=== PATIENT | male | born 1945 | race African-American/Black ===

== ENCOUNTER 2018-02-20 12:22 | Inpatient (IN) ==
[2018-02-20] MEDS ORDERED: Ipratropium/Albuterol Neb 3 ML IH ONE (12:32)
[2018-02-20 13:15] LABS: Basophils % 0.2 %; Eosinophils % 0.1 %; Hematocrit 44.6 % (37.5-50.1); Hemoglobin 14.9 g/dL (12.9-16.9); Immature Granulocytes % 0.3 % (0-4); Lymphocytes # 1.5 K/mcL (0.6-4.6); Lymphocytes % 13.5 %; Mean Corpuscular HGB Conc 33.4 g/dL (31.6-35.5); Mean Corpuscular Hemoglobin 29.2 pg (28.0-33.3); Mean Corpuscular Volume 87.5 fL (83.0-100.0); Mean Platelet Volume 10.8 fL (9.4-12.4); Monocytes # 0.7 K/mcL (0.0-1.3); Monocytes % 6.4 %; Platelet Count 239 K/mcL (140-400); Red Cell Distribution Width 14.4 % (11.5-14.5); Segmented Neutrophils % 79.5 %
[2018-02-20 13:40] LABS: Troponin I < 0.03 ng/mL (< 0.04)
[2018-02-20 13:45] LABS: BUN/Creatinine Ratio 36 (6-26); Blood Urea Nitrogen 98 mg/dL (8-23); Calcium 9.8 mg/dL (8.6-10.3); Carbon Dioxide 17 mEq/L (23-29); Chloride 107 mEq/L (98-107); Glucose 111 mg/dL (70-105); Osmolality,Calculated 317 (280-300); Potassium 4.1 mEq/L (3.5-5.1); Sodium 138 mEq/L (136-145); eGFR For African Americans 28 (> 60); eGFR For Non-African Americans 23 (> 60)
[2018-02-20] MEDS ORDERED: Azithromycin 500 MG in D5% in Water 250 ML IVPB ONE (14:16)
[2018-02-20] MEDS ORDERED: 0.9 % Sodium Chloride 1,000 ML IVC ONE (14:16)
[2018-02-20] MEDS ORDERED: methylPREDNISolone 125 MG/2 ML VIAL IVP ONE (14:16)
--- NOTE | 2018-02-20 15:17 | Emergency Department Note ---
Disposition Clinical Impression: COPD exacerbation Acute renal failure Qualifiers: Acute renal failure type: unspecified Qualified Code(s): N17.9 - Acute kidney failure, unspecified Disposition: Transfer Other Referrals: Braulio Reese MD [Primary Care Provider] - SOB HPI - General Chief Complaint: ED Shortness of Breath/Dyspnea Stated Complaint: Shortness of Breath Time Seen by Provider: 02/20/18 12:32 Source: EMS Limitations: no limitations Nursing Notes Reviewed: Yes Vital Signs Reviewed: Yes - History of Present Illness Patient presents today for evaluation of shortness of breath. Patient's shortness of breath started approximately 2 weeks ago and progressively worsened nature. Patient states increasing use of home albuterol. The patient does not wear home oxygen. History of both COPD as well as CHF. No significant weight gain. Patient has had improvement home with albuterol treatments. Patient has not had specific fevers. No recent admissions to the hospital. The patient has not been on recent steroids or antibiotics. Patient will get be given breathing treatments as well as further laboratory workup. Patient is not requiring 2 L of oxygen will likely be admitted to hospital for further treatment and evaluation - Related Data Home Medications Medication Instructions Recorded Confirmed Azelastine HCl [Astepro] 1 spray NS BID 05/21/15 10/14/17 Clopidogrel [Plavix] 75 mg PO QAM 05/21/15 10/14/17 Ferrous Sulfate 325 mg PO DAILY 05/21/15 10/14/17 Rosuvastatin [Crestor] 20 mg PO QAM 05/21/15 10/14/17 Ubidecarenone [Co Q-10] 60 mg PO QAM 07/23/15 10/14/17 Fluticasone Propionate Nasal 50 mcg NS BID 07/13/16 10/14/17 [Flonase] Montelukast [Singulair] 10 mg PO DAILY 07/13/16 10/14/17 Paroxetine HCl [Paroxetine] 40 mg PO DAILY 08/31/16 10/14/17 Tiotropium [place] [Spiriva] 1 puff IH DAILY 08/31/16 10/14/17 hydroCHLOROthiazide 12.5 mg PO DAILY 08/31/16 10/14/17 [Hydrochlorothiazide] Loratadine [Allergy Relief] 10 mg PO DAILY 05/02/17 10/14/17 Mirtazapine [Remeron] 15 mg PO HS 05/02/17 10/14/17 Pantoprazole Sodium [Protonix] 40 mg PO DAILY 05/02/17 10/14/17 Potassium Chloride [Klor-Con 10] 10 meq PO BID 05/02/17 10/14/17 Previous Rx's Medication Instructions Recorded Pantoprazole Sodium [Protonix] 40 mg PO BID #60 tablet. 05/05/17 Sucralfate [Carafate] 1 gm PO ACHS #120 tab 05/05/17 Loratadine [Allergy Relief] 10 mg PO DAILY #30 tablet 12/07/17 Allergies Allergy/AdvReac Type Severity Reaction Status Date / Time Amoxicillin AdvReac Itching Verified 12/07/17 14:35 codeine AdvReac Itching Verified 12/07/17 14:35 Review of Systems: CONSTITUTIONAL: Generalized weakness and fatigue associated chills but no fever HEENT: Eyes: No visual changes. Ears, Nose, Throat: No hearing loss, difficulty talking or unable to swallow. SKIN: No rash or itching. CARDIOVASCULAR: No chest pain, chest pressure or chest discomfort. No palpitations or edema. RESPIRATORY: Shortness of breath with white sputum production GASTROINTESTINAL: No anorexia, nausea, vomiting or diarrhea. No abdominal pain or blood. GENITOURINARY: No burning on urination or hematuria. NEUROLOGICAL: No headache, dizziness, syncope, paralysis, ataxia, numbness or tingling in the extremities. No change in bowel or bladder control. MUSCULOSKELETAL: No muscle pain, back pain, joint pain or stiffness. Past Medical History - Past Medical History Medical history: Reports: asthma, CHF, COPD Surgical history: Reports: angioplasty/stent, other Psychiatric history: Reports: no psych history - Social History Smoking Status: Never smoker Smokeless Tobacco Status: No Alcohol use: Reports: none Drug use: Reports: none Physical Exam General: Mild distress secondary to shortness of breath Head: Normocephalic Atraumatic Eyes: PERRL, EOMI ENT: Airway patent, no stridor Neck: supple, no meningismus Chest: Decreased breath sounds bilaterally Cardiac: Regular rate and rhythm, no murmurs, rubs or gallops Abdomen: soft, nontender, nondistended; no guarding, rebound, or tenderness to percussion Musculoskeletal: Calves symmetric, nontender, no palpable cord Skin: No rash, normal skin tone Neuro: Alert and Oriented to person, place, and time; No focal deficit, - General Limitations: no limitations General appearance: alert, in no apparent distress Course - Reevaluation(s) Reevaluation #1: Patient reevaluated. Significant improvement after do not enhance by EMS as well as to do nebs here. Steroids and antibiotics given. No sign of CHF. Patient with acute kidney injury. 1 L of fluids has been ordered. Significantly elevated BUN. Concern for dehydration. - Consultations Consultation #1: Discussed with hospitalist. Patient accepted for admission. Vital Signs Temperature 98.2 F 02/20/18 12:24 Pulse Rate 71 02/20/18 12:24 Respiratory Rate 18 02/20/18 12:24 Blood Pressure 103/68 02/20/18 12:24 O2 Sat by Pulse Oximetry 97 02/20/18 12:24 Temperature 98.2 F 02/20/18 12:24 Pulse Rate 71 02/20/18 12:24 Respiratory Rate 20 02/20/18 12:43 Blood Pressure 103/68 02/20/18 12:24 O2 Sat by Pulse Oximetry 99 02/20/18 12:43 Oxygen Delivery Oxygen Delivery Room Air Shortness of Breath/Dyspnea - Medical Records Medical records reviewed: Yes I reviewed the patient's medical records. - Lab Data Lab results reviewed: Yes I reviewed the patient's lab results. Result diagrams: 02/20/18 13:01 02/20/18 13:01 Lab Results 02/20/18 02/20/18 02/20/18 Range/Units 13:01 13:01 13:01 WBC 11.3 H (4.3-11.1) K/mcL RBC 5.10 (4.19-5.50) M/mcL Hgb 14.9 (12.9-16.9) g/dL Hct 44.6 (37.5-50.1) % MCV 87.5 (83.0-100.0) fL MCH 29.2 (28.0-33.3) pg MCHC 33.4 (31.6-35.5) g/dL RDW 14.4 (11.5-14.5) % Plt Count 239 (140-400) K/mcL MPV 10.8 (9.4-12.4) fL Immature Gran % 0.3 (0-4) % Seg Neutrophils % 79.5 % Lymphocytes % 13.5 % Monocytes % 6.4 % Eosinophils % 0.1 % Basophils % 0.2 % Neutrophils # 9.0 H (1.6-8.9) K/mcL Lymphocytes # 1.5 (0.6-4.6) K/mcL Monocytes # 0.7 (0.0-1.3) K/mcL Eosinophils # 0.0 (0.0-0.6) K/mcL Basophils # 0.0 (0.0-0.2) K/mcL Sodium 138 (136-145) mEq/L Potassium 4.1 (3.5-5.1) mEq/L Chloride 107 (98-107) mEq/L Carbon Dioxide 17 L (23-29) mEq/L BUN 98 H (8-23) mg/dL Creatinine 2.70 H (0.70-1.30) mg/dL Est GFR ( Amer) 28 L (> 60) Est GFR (Non-Af Amer) 23 L (> 60) BUN/Creatinine Ratio 36 H (6-26) Glucose 111 H (70-105) mg/dL Calculated Osmolality 317 H (280-300) Lactic Acid 1.0 (0.5-2.2) mmol/L Calcium 9.8 (8.6-10.3) mg/dL Troponin I < 0.03 (< 0.04) ng/mL B-Natriuretic Peptide (Less than 100) pg/mL 02/20/18 Range/Units 13:01 WBC (4.3-11.1) K/mcL RBC (4.19-5.50) M/mcL Hgb (12.9-16.9) g/dL Hct (37.5-50.1) % MCV (83.0-100.0) fL MCH (28.0-33.3) pg MCHC (31.6-35.5) g/dL RDW (11.5-14.5) % Plt Count (140-400) K/mcL MPV (9.4-12.4) fL Immature Gran % (0-4) % Seg Neutrophils % % Lymphocytes % % Monocytes % % Eosinophils % % Basophils % % Neutrophils # (1.6-8.9) K/mcL Lymphocytes # (0.6-4.6) K/mcL Monocytes # (0.0-1.3) K/mcL Eosinophils # (0.0-0.6) K/mcL Basophils # (0.0-0.2) K/mcL Sodium (136-145) mEq/L Potassium (3.5-5.1) mEq/L Chloride (98-107) mEq/L Carbon Dioxide (23-29) mEq/L BUN (8-23) mg/dL Creatinine (0.70-1.30) mg/dL Est GFR ( Amer) (> 60) Est GFR (Non-Af Amer) (> 60) BUN/Creatinine Ratio (6-26) Glucose (70-105) mg/dL Calculated Osmolality (280-300) Lactic Acid (0.5-2.2) mmol/L Calcium (8.6-10.3) mg/dL Troponin I (< 0.04) ng/mL B-Natriuretic Peptide 9 (Less than 100) pg/mL - Radiology Data Radiology results reviewed: Yes I reviewed the patient's radiology results. - EKG Data EKG attestation: Yes I reviewed and interpreted this EKG. EKG results narrative: EKG shows sinus rhythm with ventricular rate of 66. NE interval 166. QRS 139. QTC 444. Mild depression in the lateral leads which is all consistent with previous EKG of 05/02/2017.
--- NOTE | 2018-02-20 15:56 | Internal Med History&Physical ---
Date of Encounter: 02/20/18 Time of Encounter: 15:30 Internal Medicine - H&P: HPI Chief complaint: Shortness of breath Admitted From: Emergency Dept Plans for Post Hospital Care: Home History of present illness: Mr. Hernandez is a 72 year old male patient with a history of CHF, COPD, hypertension presented to the ER with complaints of shortness of breath. He reports that his symptoms have been going on for 2 weeks. Progressively getting worse. He denies any chest pain at this time. Does have some cough. No recent hospitalizations. He does not wear home oxygen at home. No palpitations. No lightheadedness or dizziness. Does report some orthopnea. Occasional pedal edema. He did receive albuterol bronchodilator nebs in the ER with improvement in his symptoms. He does have a history of GI bleed in the past. Does report some abdominal pain in the epigastric region. Denies any hematemesis or blood in his stools. Past Med Surg Social Fam HX - Past Medical History Attestation: Yes The following information was validated with the patient. Source: patient Medical history: asthma, CHF, COPD Additional medical history: anemia Psychiatric history: no psych history - Past Surgical History Surgical History: angioplasty/stent, other Additional surgical history: cardiac stent - Social History Smoking Status: Never smoker Smokeless Tobacco Status: No Alcohol use: none Drug use: none - Family History Mother Living Status: Internal Medicine - H&P: Meds Azelastine HCl [Astepro] 1 spray NS BID 05/21/15 [History] Fluticasone Propionate Nasal [Flonase] 50 mcg NS BID 07/13/16 [History] Montelukast [Singulair] 10 mg PO DAILY 07/13/16 [History] hydroCHLOROthiazide [Hydrochlorothiazide] 12.5 mg PO DAILY 08/31/16 [History] Mirtazapine [Remeron] 15 mg PO HS 05/02/17 [History] Potassium Chloride [Klor-Con 10] 10 meq PO BID 05/02/17 [History] Pantoprazole Sodium [Protonix] 40 mg PO BID #60 tablet. 05/05/17 [Rx] Sucralfate [Carafate] 1 gm PO ACHS #120 tab 05/05/17 [Rx] Loratadine [Allergy Relief] 10 mg PO DAILY #30 tablet 12/07/17 [Rx] Clopidogrel [Plavix] 75 mg PO DAILY 02/20/18 [History] Ferrous Sulfate [Ferrous Sulfate] 325 mg PO DAILY 02/20/18 [History] Metoprolol [Lopressor] 25 mg PO BID 02/20/18 [History] PARoxetine HCl [Paroxetine HCl] 40 mg PO DAILY 02/20/18 [History] Rosuvastatin Calcium [Rosuvastatin Calcium] 20 mg PO QAM 02/20/18 [History] Tiotropium [Spiriva] 1 puff IH DAILY 02/20/18 [History] Ubidecarenone [Co Q-10] 60 mg PO QAM 02/20/18 [History] 3 Allergy/AdvReac Type Severity Reaction Status Date / Time Amoxicillin AdvReac Itching Verified 12/07/17 14:35 codeine AdvReac Itching Verified 12/07/17 14:35 All Systems PM: A 10-system review of systems was performed and is negative for pertinent findings except as documented above in the HPI. - Constitutional Constitutional: no chills, no fever(s), no night sweats - EENT Eyes: no change in vision, no discharge, no pain, no photophobia Ears: no ear discharge, no ear pain, no tinnitus Nose, mouth and throat: no dysphagia, no nasal discharge, no neck pain, no sore throat - Cardiovascular Cardiovascular ROS IM: no chest pain, no diaphoresis, no dyspnea, no lightheadedness, no palpitations, no syncope - Respiratory Respiratory: cough, dyspnea, wheezing - Gastrointestinal Gastrointestinal: no abdominal pain, no diarrhea, no hematemesis, no hematochezia, no melena, no nausea, no vomiting - Musculoskeletal Musculoskeletal ROS IM: no numbness, no tingling - Integumentary Integumentary IM: no rash, no unusual bruising - Neurological Neurological ROS: no confusion, no convulsions, no focal weakness, no numbness, no tingling, no tremor(s) - Constitutional Vitals: Temp Pulse Resp BP Pulse Ox 98.2 F 71 20 103/68 99 02/20/18 12:24 02/20/18 12:24 02/20/18 12:43 02/20/18 12:24 02/20/18 12:43 General appearance: Present: cooperative, mild distress, A&O X 3, pleasant, answers questions appropriately - Neck Neck exam general surgery: Present: supple, trachea midline. Absent: lymphadenopathy - Respiratory Respiratory exam: Present: prolonged expiratory phase. Absent: accessory muscle use, rales, rhonchi, wheezes - Cardiovascular Cardiovascular exam: Present: RRR, +S1, +S2. Absent: diastolic murmur, gallop, rubs, systolic murmur - GI/Abdominal GI/Abdominal exam: Present: normal bowel sounds, soft, tenderness (Epigastric), no peritoneal signs. Absent: distended - Extremities Exam Extremities exam: Present: warm, radial pulses palpable and symmetrical. Absent : calf tenderness, cyanotic, pedal edema Internal Med - H&P Results - Labs CBC & Chem 7: 02/20/18 13:01 02/20/18 13:01 - Assessment and plan (1) COPD exacerbation Current Visit: Yes Status: Acute Assessment and plan: Patient with history of COPD. Presenting with shortness of breath and wheezing. Symptoms improved after he received bronchodilators. Currently he does not have much wheezing. We will continue treatment for COPD exacerbation. Continue his systemic steroids and bronchodilators. (2) Acute kidney injury Current Visit: Yes Status: Acute Assessment and plan: Patient with acute injury on chronic kidney disease stage III. Creatinine 2.7. Previously it was 1.05 in April. During that time he had acute kidney injury also which improved. We will hydrate gently given his underlying diastolic dysfunction. Monitor input and output. Monitor renal function closely. (3) CHF (congestive heart failure) Current Visit: Yes Status: Chronic Assessment and plan: 2-D echocardiogram done last year showed EF of 50-55% with mild to moderate concentric left ventricle hypertrophy and mild left ventricular diastolic dysfunction. Currently patient not having any pedal edema although he did report orthopnea. Chest x-ray shows no acute process. Given his acute kidney injury, will hold diuretics for now. Will obtain 2-D echocardiogram. Qualifiers: Qualified Code(s): I50.22 - Chronic systolic (congestive) heart failure (4) Type 2 diabetes mellitus Current Visit: Yes Status: Chronic Assessment and plan: Diet controlled. Monitor blood sugars closely as patient would be receiving steroids. We will place him on insulin sliding scale. Diabetic diet. 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
[2018-02-20] MEDS ORDERED: Naloxone 0.4 MG/ML INJ IVP PRN ×2 (16:06→16:07)
[2018-02-20] MEDS ORDERED: D5% in Water 1,000 ML IVC PRN (16:09)
[2018-02-20] MEDS ORDERED: Dextrose Gel 15 GM/37.5 ML TUBE PO PRN ×2 (16:09)
[2018-02-20] MEDS ORDERED: *HR* Dextrose 50 % in Water (Syg) 50 ML SYRINGE IVP PRN (16:09)
--- NOTE | 2018-02-20 17:45 | Electrocardiograph Report ---
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
[2018-02-20] MEDS: *HR* Heparin 5,000 UNIT/ML VIAL SQ SCH (18:01)
[2018-02-20] MEDS: Ringers Solution, Lactated 1,000 ML IVC SCH (18:02)
[2018-02-20] MEDS: Insulin LISPRO 300 UNITS/3 ML VIAL SQ SCH ×2 (18:02→22:12)
[2018-02-20] MEDS: Ipratropium/Albuterol Neb 3 ML IH SCH ×2 (19:33→23:39)
[2018-02-20] MEDS: Fluticasone Propionate Nasal 50 MCG/SPRAY BOTTLE NS SCH (22:17)
[2018-02-20] MEDS: Mirtazapine 15 MG TABLET PO SCH (22:17)
[2018-02-21] MEDS: Ipratropium/Albuterol Neb 3 ML IH SCH ×6 (03:33→23:44)
[2018-02-21] MEDS: *HR* Heparin 5,000 UNIT/ML VIAL SQ SCH ×2 (04:54→16:48)
[2018-02-21 04:57] LABS: Hematocrit 39.9 % (37.5-50.1); Immature Granulocytes % 0.5 % (0-4); Lymphocytes # 0.8 K/mcL (0.6-4.6); Mean Corpuscular HGB Conc 32.6 g/dL (31.6-35.5); Mean Corpuscular Hemoglobin 27.7 pg (28.0-33.3); Mean Corpuscular Volume 84.9 fL (83.0-100.0); Mean Platelet Volume 11.3 fL (9.4-12.4); Monocytes # 0.2 K/mcL (0.0-1.3); Monocytes % 2.3 %; Neutrophils # 7.6 K/mcL (1.6-8.9); Platelet Count 215 K/mcL (140-400); Red Cell Distribution Width 14.4 % (11.5-14.5); Segmented Neutrophils % 88.2 %
[2018-02-21 05:17] LABS: Calcium 9.2 mg/dL (8.6-10.3)
[2018-02-21] MEDS: Ringers Solution, Lactated 1,000 ML IVC SCH (07:34)
[2018-02-21] MEDS: Insulin LISPRO 300 UNITS/3 ML VIAL SQ SCH ×4 (08:13→21:29)
[2018-02-21] MEDS: Azithromycin 250 MG TABLET PO SCH (08:27)
[2018-02-21] MEDS: Loratadine 10 MG TABLET PO SCH (08:27)
[2018-02-21] MEDS: predniSONE 20 MG TABLET PO SCH (08:27)
[2018-02-21] MEDS: Fluticasone Propionate Nasal 50 MCG/SPRAY BOTTLE NS SCH ×2 (08:28→21:42)
[2018-02-21] MEDS ORDERED: UBIDECARENONE 60 MG PO SCH (09:00)
[2018-02-21] MEDS ORDERED: Acetaminophen 325 MG TABLET PO PRN (11:55)
--- NOTE | 2018-02-21 19:04 | Internal Med Progress Note ---
Date of Encounter: 02/21/18 Time of Encounter: 11:00 - Assessment and plan (1) COPD exacerbation Current Visit: Yes Status: Acute Assessment and plan: SOB and wheezing improved but still persistent c/w nebs, Azithromycina, singulair, and steroids Saturating well on RA (2) Acute kidney injury Current Visit: Yes Status: Acute Assessment and plan: Acute on chronic kidney disease stage III Creatinine improving from 2.7 to 2.6 Monitor BMP, continue IVF support (3) CHF (congestive heart failure) Current Visit: Yes Status: Chronic Assessment and plan: Previous ECHO last year with EF 50-55% with LVH and diastolic dysfunction Reports orthopnea but no LE edema noted CXR clear, duretics held due to ROWAN. 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 Does not feel that he could go home yet. - Constitutional Vitals: Temp Pulse Resp BP Pulse Ox 98.1 F 77 18 108/65 97 02/21/18 16:26 02/21/18 16:26 02/21/18 16:26 02/21/18 16:26 02/21/18 16:26 General appearance: Present: cooperative, mild distress, A&O X 3, pleasant, answers questions appropriately Exam: General: Alert and oriented Skin: Normal color, no rash, no lesions. HEENT: EOMI, pupils equal, round and reactive. Cardiovascular: Regular rate, regular rythm. No murmurs appreciated. Lungs: Mild SOB and mild wheezing b/l. Abdomen:Soft, non-tender, no rigidity. Extremities:No deformity, no edema or tenderness, no joint swelling or clubbing. Neurological:Normal cognition, no weakness, no numbness. Rest of the physical exam is non contributory Internal Medicine: Result - Labs CBC & Chem 7: 02/21/18 04:27 02/21/18 04:27 Consult Discharge Plan - Plan Referrals: Braulio Reese MD [Primary Care Provider] -
[2018-02-21] MEDS: Mirtazapine 15 MG TABLET PO SCH (21:42)
[2018-02-22] MEDS: Ipratropium/Albuterol Neb 3 ML IH SCH ×3 (03:43→11:39)
[2018-02-22] MEDS: *HR* Heparin 5,000 UNIT/ML VIAL SQ SCH (05:13)
[2018-02-22] MEDS: Insulin LISPRO 300 UNITS/3 ML VIAL SQ SCH ×2 (07:28→11:49)
[2018-02-22] MEDS: Azithromycin 250 MG TABLET PO SCH (08:55)
[2018-02-22] MEDS: Fluticasone Propionate Nasal 50 MCG/SPRAY BOTTLE NS SCH (08:55)
[2018-02-22] MEDS: predniSONE 20 MG TABLET PO SCH (08:55)
[2018-02-22] MEDS: Loratadine 10 MG TABLET PO SCH (08:55)
[2018-02-22 10:05] LABS: Basophils % 0.1 %; Hematocrit 39.1 % (37.5-50.1); Immature Granulocytes % 0.3 % (0-4); Lymphocytes # 0.6 K/mcL (0.6-4.6); Lymphocytes % 5.3 %; Mean Corpuscular HGB Conc 33.2 g/dL (31.6-35.5); Mean Corpuscular Hemoglobin 28.5 pg (28.0-33.3); Mean Corpuscular Volume 85.7 fL (83.0-100.0); Mean Platelet Volume 11.3 fL (9.4-12.4); Monocytes # 0.4 K/mcL (0.0-1.3); Monocytes % 3.8 %; Neutrophils # 10.3 K/mcL (1.6-8.9); Platelet Count 236 K/mcL (140-400); Red Blood Count 4.56 M/mcL (4.19-5.50); Red Cell Distribution Width 14.8 % (11.5-14.5); Segmented Neutrophils % 90.5 %
[2018-02-22 10:32] LABS: Albumin 4.1 g/dL (3.5-5.7); Albumin/Globulin Ratio 1.6 (1.1-2.2); Bilirubin,Total 0.3 mg/dL (0.3-1.0); Calcium 9.3 mg/dL (8.6-10.3); Globulin 2.6 g/dL (2.4-3.5); Potassium 3.7 mEq/L (3.5-5.1); Total Protein 6.7 g/dL (6.4-8.9)
--- NOTE | 2018-02-22 10:46 | Internal Med Progress Note ---
Date of Encounter: 02/22/18 Time of Encounter: 10:43 - Assessment and plan (1) COPD exacerbation Current Visit: Yes Status: Acute Assessment and plan: SOB and wheezing resolved Will discharge today for follow up with PMD. Will finish up 5 day course of antibiotics and prednisone (2) Acute kidney injury Current Visit: Yes Status: Acute Assessment and plan: Acute on Chronic kidney disease stage 3 On IVF, Cr improving. (3) CHF (congestive heart failure) Current Visit: Yes Status: Chronic Assessment and plan: ECHO with 55% on this admission. Currently euvolemic. Reported orthopnea but no LE edema noted CXR clear, duretics held due to ROWAN. Will hold now. May be resumed by PMD as outpatient when more stable. Qualifiers: Qualified Code(s): I50.22 - Chronic systolic (congestive) heart failure (4) Type 2 diabetes mellitus Current Visit: Yes Status: Chronic Assessment and plan: BS controlled Has been on insulin sliding scale Will discharge with home medication resumed Qualifiers: Diabetes mellitus half-way insulin use: without dedicated intermodal truck driver use Diabetes mellitus complication status: without complication Qualified Code(s): E11.9 - Type 2 diabetes mellitus without complications - Time Spent With Patient Total time spent is greater than 50% in coordination of care (as documented) at patient's floor/unit and/or counseling patient: Greater than 35 minutes - Subjective Interval history: Patient reports feeling well today, does not report SOB. Feels that he is stable to go home. - Constitutional Vitals: Temp Pulse Resp BP Pulse Ox 97.7 F 73 18 133/89 97 02/22/18 06:58 02/22/18 06:58 02/22/18 06:58 02/22/18 06:58 02/22/18 06:58 General appearance: Present: cooperative, mild distress, A&O X 3, pleasant, answers questions appropriately Exam: General: Alert and oriented. Skin: Normal color, no rash, no lesions. HEENT: EOMI, pupils equal, round and reactive. Cardiovascular: Regular rate. No murmurs appreciated. Lungs:Normal breath sounds, no wheezes or crackles. Abdomen:Soft, non-tender, no rigidity. Extremities:No deformity, no edema or tenderness, no joint swelling or clubbing. Neurological:Normal cognition Rest of the physical exam is non contributory Internal Medicine: Result - Labs CBC & Chem 7: 02/22/18 09:27 02/22/18 09:27 Labs: Short CBC 02/22/18 Range/Units 09:27 WBC 11.4 H (4.3-11.1) K/mcL Hgb 13.0 (12.9-16.9) g/dL Hct 39.1 (37.5-50.1) % Plt Count 236 (140-400) K/mcL Neutrophils # 10.3 H (1.6-8.9) K/mcL BMP 02/22/18 09:27 Sodium 139 Potassium 3.7 Chloride 112 H Carbon Dioxide 15 L BUN 91 H Creatinine 2.08 H Glucose 120 H Calcium 9.3 Liver Function 02/22/18 Range/Units 09:27 Total Bilirubin 0.3 (0.3-1.0) mg/dL AST 6 L (13-39) Units/L ALT 7 (7-52) Units/L Alkaline Phosphatase 85 (34-104) Units/L Albumin 4.1 (3.5-5.7) g/dL Consult Discharge Plan - Plan Referrals: Braulio Reese MD [Primary Care Provider] -
--- NOTE | 2018-02-22 10:54 | Discharge Summary ---
- NOTES TO OUTPATIENT PROVIDER Notes to Outpatient Provider: Patient with COPD exacerbation as well as ROWAN on CKD. Euvolemic, lasix held due to ROWAN. Please resume home Lasix dose when appropriate. Date of Encounter: 02/22/18 Time of Encounter: 10:00 - Discharge Diagnosis (1) COPD exacerbation Priority: Primary Status: Acute Assessment and Plan: SOB and wheezing resolved Will discharge today for follow up with PMD. Will finish up 5 day course of antibiotics and prednisone (2) Acute kidney injury Priority: Secondary Status: Acute Assessment and Plan: Acute on Chronic kidney disease stage 3 On IVF, Cr improving. (3) CHF (congestive heart failure) Priority: Secondary Status: Chronic Assessment and Plan: ECHO with 55% on this admission. Currently euvolemic. Reported orthopnea but no LE edema noted CXR clear, duretics held due to ROWAN. Will hold now. May be resumed by PMD as outpatient when more stable. Qualifiers: Qualified Code(s): I50.22 - Chronic systolic (congestive) heart failure (4) Type 2 diabetes mellitus Priority: Secondary Status: Chronic Assessment and Plan: BS controlled Has been on insulin sliding scale Will discharge with home medication resumed Qualifiers: Diabetes mellitus retirement insulin use: without retirement use Diabetes mellitus complication status: without complication Qualified Code(s): E11.9 - Type 2 diabetes mellitus without complications Hospital course: Mr. Hernandez is a 72 year old male with PMH COPD, CKD and HFpEF presented with SOB admitted with COPD exacerbation and ROWAN. Course has been uncompliated and patient recovered quickly, reports feeling well currently. Patient had been euvolemic with no LE edema and Lasix was held due to ROWAN. Kidney functions have improved and can likely resume his Lasix after following up with PMD as outpatient. Discharge discussed with: patient, nurse - Time Spent with Patient Total time spent providing and/or coordinating discharge services: Greater than 30 minutes - Discharge Medications Prescriptions: Azithromycin [Zithromax] 500 mg PO DAILY 3 Days #3 tablet predniSONE [PredniSONE] 40 mg PO DAILY 3 Days #6 tablet Home Medications: Azelastine HCl [Astepro] 1 spray NS BID 05/21/15 [History] Fluticasone Propionate Nasal [Flonase] 50 mcg NS BID 07/13/16 [History] Montelukast [Singulair] 10 mg PO DAILY 07/13/16 [History] hydroCHLOROthiazide [Hydrochlorothiazide] 12.5 mg PO DAILY 08/31/16 [History] Mirtazapine [Remeron] 15 mg PO HS 05/02/17 [History] Potassium Chloride [Klor-Con 10] 10 meq PO BID 05/02/17 [History] Pantoprazole Sodium [Protonix] 40 mg PO BID #60 tablet. 05/05/17 [Rx] Sucralfate [Carafate] 1 gm PO ACHS #120 tab 05/05/17 [Rx] Loratadine [Allergy Relief] 10 mg PO DAILY #30 tablet 12/07/17 [Rx] Clopidogrel [Plavix] 75 mg PO DAILY 02/20/18 [History] Ferrous Sulfate 325 mg PO DAILY 02/20/18 [History] Metoprolol [Lopressor] 25 mg PO BID 02/20/18 [History] PARoxetine HCl [Paroxetine HCl] 40 mg PO DAILY 02/20/18 [History] Rosuvastatin Calcium 20 mg PO QAM 02/20/18 [History] Tiotropium [Spiriva] 1 puff IH DAILY 02/20/18 [History] Ubidecarenone [Co Q-10] 60 mg PO QAM 02/20/18 [History] Azithromycin [Zithromax] 500 mg PO DAILY 3 Days #3 tablet 02/22/18 [Rx] predniSONE [PredniSONE] 40 mg PO DAILY 3 Days #6 tablet 02/22/18 [Rx] Allergies/Adverse Reactions: 3 Allergy/AdvReac Type Severity Reaction Status Date / Time Amoxicillin AdvReac Itching Verified 12/07/17 14:35 codeine AdvReac Itching Verified 12/07/17 14:35 Date of admission: 02/21/18 16:26 Primary care physician: Braulio Reese MD - Constitutional Vitals: Temp Pulse Resp BP Pulse Ox 97.7 F 73 18 133/89 97 02/22/18 06:58 02/22/18 06:58 02/22/18 06:58 02/22/18 06:58 02/22/18 06:58 General appearance: Present: cooperative, mild distress, A&O X 3, pleasant, answers questions appropriately Exam: General: Alert and oriented Skin: Normal color, no rash, no lesions. HEENT: EOMI, pupils equal, round and reactive. Cardiovascular: Regular rate, regular rythm. No murmurs appreciated. Lungs:Normal breath sounds, no wheezes or crackles. Abdomen:Soft, non-tender, no rigidity. Extremities:No deformity, no edema or tenderness, no joint swelling or clubbing. Neurological:Normal cognition, no numbness. Rest of the physical exam is non contributory - Patient Status Disposition: Home Health Service Condition: Fair Overall status at discharge: patient is progressing back to baseline - Discharge Instructions Follow Up With: Braulio Reese MD [Primary Care Provider] - - Diet and Activity Activity: resume usual activities as tolerated Diet: advance to your usual diet
[2018-02-22 10:58] VITALS: BP 135/69
--- NOTE | 2018-02-22 11:19 | Physician Discharge Referral ---
- Diagnosis (1) COPD exacerbation Status: Acute (2) Acute kidney injury Status: Acute (3) CHF (congestive heart failure) Status: Chronic (4) Type 2 diabetes mellitus Status: Chronic - Respiratory Orders Smoking Cessation: Smoking cessation has been advised. For more information, call the [place] Tobacco Quit Line at 6-686-DFUG-NOW. - Services Needed Following services are medically necessary services: Nursing, Home Health Aide, Physical Therapy - Transfer Medications Prescriptions: Azithromycin [Zithromax] 500 mg PO DAILY 3 Days #3 tablet predniSONE [PredniSONE] 40 mg PO DAILY 3 Days #6 tablet Home Medications: Azelastine HCl [Astepro] 1 spray NS BID 05/21/15 [History] Fluticasone Propionate Nasal [Flonase] 50 mcg NS BID 07/13/16 [History] Montelukast [Singulair] 10 mg PO DAILY 07/13/16 [History] hydroCHLOROthiazide [Hydrochlorothiazide] 12.5 mg PO DAILY 08/31/16 [History] Mirtazapine [Remeron] 15 mg PO HS 05/02/17 [History] Potassium Chloride [Klor-Con 10] 10 meq PO BID 05/02/17 [History] Pantoprazole Sodium [Protonix] 40 mg PO BID #60 tablet. 05/05/17 [Rx] Sucralfate [Carafate] 1 gm PO ACHS #120 tab 05/05/17 [Rx] Loratadine [Allergy Relief] 10 mg PO DAILY #30 tablet 12/07/17 [Rx] Clopidogrel [Plavix] 75 mg PO DAILY 02/20/18 [History] Ferrous Sulfate 325 mg PO DAILY 02/20/18 [History] Metoprolol [Lopressor] 25 mg PO BID 02/20/18 [History] PARoxetine HCl [Paroxetine HCl] 40 mg PO DAILY 02/20/18 [History] Rosuvastatin Calcium 20 mg PO QAM 02/20/18 [History] Tiotropium [Spiriva] 1 puff IH DAILY 02/20/18 [History] Ubidecarenone [Co Q-10] 60 mg PO QAM 02/20/18 [History] Azithromycin [Zithromax] 500 mg PO DAILY 3 Days #3 tablet 02/22/18 [Rx] predniSONE [PredniSONE] 40 mg PO DAILY 3 Days #6 tablet 02/22/18 [Rx] Allergies/Adverse Reactions: 3 Allergy/AdvReac Type Severity Reaction Status Date / Time Amoxicillin AdvReac Itching Verified 12/07/17 14:35 codeine AdvReac Itching Verified 12/07/17 14:35 Certification: Further, I certify that my clinical findings support that this patient is homebound (i.e. absences from home require considerable and taxing effort and are for medical reasons or alevism services or infrequently or short duration when for other reasons) because: Homebound Reason: Patient requires assistance of a person or device to safely leave home, Leaving home requires considerable and taxing effort due to condition Attestation: My signature below is to certify that this patient is under my care and that I, or nurse practitioner, or a physician's training program assistant working with me, has a face-to -face encounter with this patient.
== END 2018-02-22 13:54 | disposition home health service (06) | DRG 191 ==
LOC: 2ANU 12:22 → EMEROO 12:22 → 2ANU 16:30
PROVIDERS: ADMIT Internal Medicine; ATTEND Internal Medicine

== ENCOUNTER 2020-10-10 02:43 | Inpatient (IN) ==
[2020-10-10 03:10] LABS: Basophils % 0.2 %; Hemoglobin 13.8 g/dL (12.9-16.9); Immature Granulocytes % 1.3 % (0-4); Lymphocytes # 0.2 K/mcL (0.6-4.6); Lymphocytes % 1.2 %; Mean Corpuscular HGB Conc 32.9 g/dL (31.6-35.5); Mean Corpuscular Hemoglobin 27.8 pg (28.0-33.3); Mean Corpuscular Volume 84.5 fL (83.0-100.0); Mean Platelet Volume 10.9 fL (9.4-12.4); Monocytes # 1.2 K/mcL (0.0-1.3); Neutrophils # 18.4 K/mcL (1.6-8.9); Nucleated Red Blood Cells 0.1 /100 WBC (0); Platelet Count 245 K/mcL (140-400); Red Blood Count 4.97 M/mcL (4.19-5.50); Red Cell Distribution Width 16.5 % (11.5-14.5); Segmented Neutrophils % 91.3 %; White Blood Count 20.2 K/mcL (4.3-11.1)
[2020-10-10] MEDS ORDERED: MetroNIDAZOLE 500 MG/100 ML 500 MG/100 ML BAG IVPB ONE (03:30)
[2020-10-10] MEDS ORDERED: Cefepime HCl 1,000 MG in 0.9 % Sodium Chloride Mini Bag 100 ML IVPB ONE (03:30)
[2020-10-10 03:33] LABS: Calcium 9.8 mg/dL (8.6-10.3); Potassium 3.1 mEq/L (3.5-5.1)
[2020-10-10] MEDS ORDERED: Ipratropium/Albuterol Neb 3 ML IH ONE (03:40)
[2020-10-10 03:47] LABS: Troponin I 0.1 ng/mL (< 0.04)
[2020-10-10 04:14] LABS: INR 1.3; Prothrombin Time 15.3 Seconds (9.4-12.1)
[2020-10-10 04:17] LABS: Albumin 3.8 g/dL (3.5-5.7); Albumin/Globulin Ratio 1.3 (1.1-2.2); Bilirubin,Direct 0.1 mg/dL (0.0-0.2); Bilirubin,Indirect 0.9 mg/dL (0.0-1.0); Globulin 2.9 g/dL (2.4-3.5); Magnesium 2.3 mg/dL (1.6-2.6); Phosphorous 3.2 mg/dL (2.7-4.5); Total Protein 6.7 g/dL (6.4-8.9)
[2020-10-10 04:17] LABS: Activated Partial Thrombo Time 25.8 Seconds (26.0-36.0)
[2020-10-10 05:01] LABS: Bilirubin,Urine Negative (Negative); Blood,Urine Negative (Negative); Clarity,Urine Turbid (Clear); Color,Urine Yellow (Yellow); Glucose,Urine (UA) Normal (Normal); Ketones,Urine Negative (Negative); Leukocyte Esterase,Urine Negative (Negative); Mucus,Urine Few per lpf (None-Few); Nitrite,Urine Negative (Negative); Protein,Urine 70 mg/dL (Neg-Trace); RBC,Urine 0-3 per hpf (0-3); Specific Gravity,Urine 1.015 (1.010-1.025); Urobilinogen,Urine Normal (Normal); WBC,Urine 0-3 per hpf (0-3)
[2020-10-10] MEDS ORDERED: Furosemide 40 MG/4 ML VIAL IVP ONE (07:15)
[2020-10-10] MEDS ORDERED: Potassium Chloride Elixir 20 MEQ/15 ML UDC PO ONE (09:31)
[2020-10-10] MEDS ORDERED: Naloxone 0.4 MG/ML INJ IVP PRN (09:37)
[2020-10-10] MEDS ORDERED: Ondansetron 4 MG/2 ML VIAL IVP PRN (09:37)
[2020-10-10] MEDS ORDERED: Acetaminophen 325 MG TABLET PO PRN (09:37)
[2020-10-10] MEDS ORDERED: *HR* Midazolam HCl 5 MG/5 ML VIAL IVP ONE (09:41)
[2020-10-10] MEDS ORDERED: *HR* Etomidate 20 MG/10 ML AMPUL IVP ONE (09:41)
[2020-10-10] MEDS ORDERED: Azithromycin 500 MG in 0.9 % Sodium Chloride 250 ML IVPB SCH (10:00)
[2020-10-10] MEDS: MethylPREDNISolone 40 MG/ML VIAL IVP SCH ×2 (10:18→20:41)
[2020-10-10] MEDS: Ipratropium/Albuterol Neb 3 ML IH SCH ×3 (10:36→22:52)
[2020-10-10 10:40] LABS: Basophils % 0.1 %; Hematocrit 41.9 % (37.5-50.1); Hemoglobin 13.6 g/dL (12.9-16.9); Immature Granulocytes % 0.9 % (0-4); Lymphocytes # 0.5 K/mcL (0.6-4.6); Lymphocytes % 2.6 %; Mean Corpuscular HGB Conc 32.5 g/dL (31.6-35.5); Mean Corpuscular Hemoglobin 27.5 pg (28.0-33.3); Mean Corpuscular Volume 84.8 fL (83.0-100.0); Mean Platelet Volume 11.7 fL (9.4-12.4); Monocytes # 1.1 K/mcL (0.0-1.3); Monocytes % 6.2 %; Platelet Count 230 K/mcL (140-400); Red Blood Count 4.94 M/mcL (4.19-5.50); Red Cell Distribution Width 16.3 % (11.5-14.5); Segmented Neutrophils % 90.2 %; White Blood Count 17.8 K/mcL (4.3-11.1)
[2020-10-10 11:03] LABS: Calcium 9.6 mg/dL (8.6-10.3); Potassium 2.8 mEq/L (3.5-5.1)
[2020-10-10] MEDS ORDERED: Potassium Chloride 40 MEQ, Lidocaine 1% 2 ML in 0.9 % Sodium Chloride 500 ML IVPB ONE (11:24)
[2020-10-10] MEDS ORDERED: Perflutren Lipid Microsphere 1.3 ML in 0.9 % Sodium Chloride 8.7 ML IVP PRN (11:34)
[2020-10-10] MEDS: cefTRIAXone 2,000 MG in 0.9 % Sodium Chloride Mini Bag 100 ML IVPB SCH (12:24)
[2020-10-10 12:26] LABS: Sodium, Urine 25.9 mEq/L
[2020-10-10] MEDS ORDERED: *HR* LORazepam 2 MG/ML VIAL IVP PRN ×3 (17:11)
[2020-10-10] MEDS ORDERED: *HR* Heparin 5,000 UNIT/ML VIAL SQ SCH (18:00)
[2020-10-10] MEDS ORDERED: *HR* LORazepam 2 MG/ML VIAL IVP ONE (18:50)
[2020-10-10 20:08] LABS: VBG HCO3 21 mEq/L (21-27); VBG PCO2 33 mmHg (41-51); VBG PH 7.41 pH Units (7.32-7.42); VBG PO2 164 mmHg (25-50)
[2020-10-10] MEDS: QUEtiapine Fumarate 25 MG TABLET PO SCH (22:20)
[2020-10-10] MEDS: Melatonin 3 MG TABLET PO SCH (22:20)
[2020-10-10] MEDS ORDERED: Haloperidol Lactate 5 MG/ML VIAL IVP PRN (22:24)
[2020-10-10] MEDS ORDERED: 0.9 % Sodium Chloride 1,000 ML ONE (23:29)
[2020-10-10 23:47] LABS: ABG Base Excess -3 mEq/L (-2 to 3); ABG HCO3 24 mEq/L (21-27); ABG Oxygen Saturation 95 % (95-98); ABG PCO2 49 mmHg (35-45); ABG PO2 82 mmHg (85-104); ABG TCO2 26 mEq/L (20-26)
[2020-10-11] MEDS: FentaNYL (PF) 1,000 MCG/100 ML IV.SOLN IVC SCH ×2 (00:32→15:35)
[2020-10-11] MEDS ORDERED: Artificial Tears SOLN 15 ML BOTTLE BOTH EYES PRN (00:34)
[2020-10-11] MEDS ORDERED: Pantoprazole 40 MG VIAL IVP SCH (00:45)
[2020-10-11 01:06] LABS: ABG Base Excess -4 mEq/L (-2 to 3); ABG HCO3 21 mEq/L (21-27); ABG Oxygen Saturation 96 % (95-98); ABG PCO2 37 mmHg (35-45); ABG PH 7.37 pH Units (7.32-7.45); ABG PO2 87 mmHg (85-104); ABG TCO2 22 mEq/L (20-26); Blood Gas VT 400 cc
[2020-10-11 01:20] LABS: Basophils % 0.1 %; Hematocrit 37.7 % (37.5-50.1); Immature Granulocytes % 0.8 % (0-4); Lymphocytes % 0.8 %; Mean Corpuscular HGB Conc 31.6 g/dL (31.6-35.5); Mean Corpuscular Hemoglobin 27.2 pg (28.0-33.3); Mean Corpuscular Volume 86.3 fL (83.0-100.0); Mean Platelet Volume 11.4 fL (9.4-12.4); Monocytes # 0.8 K/mcL (0.0-1.3); Monocytes % 4.3 %; Platelet Count 206 K/mcL (140-400); Red Blood Count 4.37 M/mcL (4.19-5.50); Red Cell Distribution Width 16.3 % (11.5-14.5); White Blood Count 18.1 K/mcL (4.3-11.1)
[2020-10-11 01:26] LABS: Calcium 8.7 mg/dL (8.6-10.3); Magnesium 2.2 mg/dL (1.6-2.6)
[2020-10-11 01:29] LABS: Hemoglobin 11.9 g/dL (12.9-16.9); Lymphocytes # 0.1 K/mcL (0.6-4.6)
[2020-10-11] MEDS ORDERED: Dextrose Gel 15 GM/37.5 ML TUBE PO PRN ×2 (01:55)
[2020-10-11] MEDS ORDERED: D5% in Water 1,000 ML IVC PRN (01:55)
[2020-10-11] MEDS: Ipratropium/Albuterol Neb 3 ML IH PRN (03:23)
[2020-10-11] MEDS: Heparin 25,000UNIT/250ML 1/2NS 25,000 UNIT/250 ML IV.SOLN IVC SCH (04:00)
[2020-10-11 04:43] LABS: ABG Base Excess -4 mEq/L (-2 to 3); ABG HCO3 21 mEq/L (21-27); ABG Oxygen Saturation 97 % (95-98); ABG PCO2 36 mmHg (35-45); ABG PH 7.37 pH Units (7.32-7.45); ABG PO2 97 mmHg (85-104); ABG TCO2 22 mEq/L (20-26); Blood Gas Modality AF; Blood Gas VT 400 cc
[2020-10-11] MEDS ORDERED: POTASSIUM CHLORIDE IVPB ONE (05:19)
[2020-10-11] MEDS ORDERED: *HR* Heparin 5,000 UNIT/ML VIAL IVP PRN ×2 (05:27)
[2020-10-11] MEDS ORDERED: *HR* Heparin 5,000 UNIT/ML VIAL IVP ONE (05:27)
[2020-10-11] MEDS: Artificial Tears SOLN 15 ML BOTTLE BOTH EYES SCH ×6 (05:41→23:29)
[2020-10-11] MEDS: Insulin LISPRO 300 UNITS/3 ML VIAL SUBQ SCH ×6 (05:59→23:29)
[2020-10-11] MEDS: Chlorhexidine Rinse 15 ML MOUTHWASH MM SCH ×3 (06:06→19:55)
[2020-10-11] MEDS: Pantoprazole 40 MG VIAL IVP SCH (06:06)
[2020-10-11 09:12] LABS: Hematocrit 37.7 % (37.5-50.1); Mean Corpuscular HGB Conc 31.8 g/dL (31.6-35.5); Mean Corpuscular Volume 87.9 fL (83.0-100.0); Mean Platelet Volume 11.8 fL (9.4-12.4); Platelet Count 212 K/mcL (140-400); Red Blood Count 4.29 M/mcL (4.19-5.50); Red Cell Distribution Width 16.7 % (11.5-14.5); White Blood Count 17.8 K/mcL (4.3-11.1)
[2020-10-11 09:20] LABS: INR 1.3; Prothrombin Time 15.3 Seconds (9.4-12.1)
[2020-10-11 09:35] LABS: Heparin anti-factor XA UFH 1.41 IU/mL (0.30-0.70)
[2020-10-11] MEDS: MethylPREDNISolone 40 MG/ML VIAL IVP SCH ×2 (10:07→19:56)
[2020-10-11 11:37] LABS: Estimated Average Glucose 117 mg/dl; Hemoglobin A1C 5.7 %
[2020-10-11] MEDS: cefTRIAXone 2,000 MG in 0.9 % Sodium Chloride Mini Bag 100 ML IVPB SCH (12:31)
[2020-10-11 16:26] LABS: Potassium 3.4 mEq/L (3.5-5.1)
[2020-10-11] MEDS: Doxycycline 100 MG in 0.9 % Sodium Chloride Mini Bag 100 ML IVPB SCH (18:15)
[2020-10-11] MEDS ORDERED: Calcium Gluconate 1gm/50mL 1 GM/50 ML BAG IVPB PRN (18:16)
[2020-10-11] MEDS ORDERED: Potassium Phosphate 44 MEQ in 0.9 % Sodium Chloride 250 ML IVPB PRN (18:16)
[2020-10-11] MEDS ORDERED: Potassium Chloride 40 MEQ/200 ML BAG IVPB PRN (18:16)
[2020-10-11 19:11] LABS: Basophils % 0.1 %; Hematocrit 36.6 % (37.5-50.1); Hemoglobin 11.6 g/dL (12.9-16.9); Immature Granulocytes % 1.3 % (0-4); Lymphocytes # 0.2 K/mcL (0.6-4.6); Lymphocytes % 1.7 %; Mean Corpuscular HGB Conc 31.7 g/dL (31.6-35.5); Mean Corpuscular Hemoglobin 27.7 pg (28.0-33.3); Mean Corpuscular Volume 87.4 fL (83.0-100.0); Mean Platelet Volume 11.1 fL (9.4-12.4); Monocytes # 0.5 K/mcL (0.0-1.3); Monocytes % 3.6 %; Neutrophils # 12.8 K/mcL (1.6-8.9); Nucleated Red Blood Cells 0.1 /100 WBC (0); Platelet Count 184 K/mcL (140-400); Red Blood Count 4.19 M/mcL (4.19-5.50); Red Cell Distribution Width 16.8 % (11.5-14.5); Segmented Neutrophils % 93.3 %; White Blood Count 13.7 K/mcL (4.3-11.1)
[2020-10-11 19:23] LABS: Calcium 9.1 mg/dL (8.6-10.3); Potassium 3.5 mEq/L (3.5-5.1)
[2020-10-11] MEDS: Melatonin 3 MG TABLET PO SCH (19:53)
[2020-10-11] MEDS: QUEtiapine Fumarate 25 MG TABLET PO SCH (19:56)
[2020-10-12 02:14] LABS: VBG Ionized Calcium 1.15 mmol/L (1.15-1.35)
[2020-10-12 02:33] LABS: Magnesium 2.5 mg/dL (1.6-2.6); Phosphorous 4.9 mg/dL (2.7-4.5)
[2020-10-12] MEDS: Artificial Tears SOLN 15 ML BOTTLE BOTH EYES SCH ×6 (03:37→23:35)
[2020-10-12] MEDS: Insulin LISPRO 300 UNITS/3 ML VIAL SUBQ SCH ×6 (03:37→23:35)
[2020-10-12 04:17] LABS: ABG Base Excess -3 mEq/L (-2 to 3); ABG HCO3 21 mEq/L (21-27); ABG Oxygen Saturation 98 % (95-98); ABG PCO2 35 mmHg (35-45); ABG PO2 109 mmHg (85-104); ABG TCO2 22 mEq/L (20-26); Blood Gas Modality AF; Blood Gas VT 400 cc
[2020-10-12 04:55] LABS: Calcium 8.9 mg/dL (8.6-10.3); Potassium 3.4 mEq/L (3.5-5.1)
[2020-10-12] MEDS: Pantoprazole 40 MG VIAL IVP SCH (05:18)
[2020-10-12] MEDS: Doxycycline 100 MG in 0.9 % Sodium Chloride Mini Bag 100 ML IVPB SCH (05:18)
[2020-10-12 05:29] LABS: Basophils % 0.1 %; Hemoglobin 11.3 g/dL (12.9-16.9); Immature Granulocytes % 1.3 % (0-4); Lymphocytes # 0.3 K/mcL (0.6-4.6); Lymphocytes % 1.8 %; Mean Corpuscular HGB Conc 31.4 g/dL (31.6-35.5); Mean Corpuscular Hemoglobin 27.8 pg (28.0-33.3); Mean Corpuscular Volume 88.5 fL (83.0-100.0); Mean Platelet Volume 11.9 fL (9.4-12.4); Monocytes # 0.6 K/mcL (0.0-1.3); Monocytes % 4.5 %; Nucleated Red Blood Cells 0.4 /100 WBC (0); Platelet Count 230 K/mcL (140-400); Red Blood Count 4.07 M/mcL (4.19-5.50); Red Cell Distribution Width 16.8 % (11.5-14.5); Segmented Neutrophils % 92.3 %; White Blood Count 14.1 K/mcL (4.3-11.1)
[2020-10-12] MEDS: Chlorhexidine Rinse 15 ML MOUTHWASH MM SCH ×2 (09:04→19:38)
[2020-10-12] MEDS: MethylPREDNISolone 40 MG/ML VIAL IVP SCH ×2 (09:09→19:38)
[2020-10-12] MEDS: FentaNYL (PF) 1,000 MCG/100 ML IV.SOLN IVC SCH ×2 (10:43→20:56)
[2020-10-12] MEDS: cefTRIAXone 2,000 MG in 0.9 % Sodium Chloride Mini Bag 100 ML IVPB SCH (12:12)
[2020-10-12] MEDS ORDERED: Potassium Chloride Elixir 20 MEQ/15 ML UDC GTUBE PRN (13:37)
[2020-10-12] MEDS: Heparin 25,000UNIT/250ML 1/2NS 25,000 UNIT/250 ML IV.SOLN IVC SCH (14:04)
[2020-10-12] MEDS: Piperacillin/Tazobactam 3.375 GM in 0.9 % Sodium Chloride Mini Bag 100 ML IVPB SCH ×2 (14:05→22:42)
[2020-10-12] MEDS: Dexmedetomidine HCl 400 MCG/100 ML MLS IVC SCH ×2 (14:06→20:56)
[2020-10-12] MEDS: Melatonin 3 MG TABLET PO SCH (19:37)
[2020-10-12] MEDS: QUEtiapine Fumarate 25 MG TABLET PO SCH (19:38)
[2020-10-13] MEDS: Artificial Tears SOLN 15 ML BOTTLE BOTH EYES SCH ×5 (03:21→21:46)
[2020-10-13] MEDS: Insulin LISPRO 300 UNITS/3 ML VIAL SUBQ SCH ×4 (03:25→21:46)
[2020-10-13 04:17] LABS: ABG Base Excess -2 mEq/L (-2 to 3); ABG HCO3 24 mEq/L (21-27); ABG Oxygen Saturation 97 % (95-98); ABG PCO2 44 mmHg (35-45); ABG PH 7.35 pH Units (7.32-7.45); ABG PO2 100 mmHg (85-104); ABG TCO2 25 mEq/L (20-26); Blood Gas VT 400 cc
[2020-10-13 04:22] LABS: VBG Ionized Calcium 1.17 mmol/L (1.15-1.35)
[2020-10-13 04:24] LABS: Basophils % 0.2 %; Hematocrit 35.8 % (37.5-50.1); Immature Granulocytes % 2.2 % (0-4); Lymphocytes # 0.3 K/mcL (0.6-4.6); Lymphocytes % 2.4 %; Mean Corpuscular HGB Conc 30.7 g/dL (31.6-35.5); Mean Corpuscular Hemoglobin 27.4 pg (28.0-33.3); Mean Corpuscular Volume 89.1 fL (83.0-100.0); Monocytes # 0.4 K/mcL (0.0-1.3); Monocytes % 2.7 %; Nucleated Red Blood Cells 0.5 /100 WBC (0); Platelet Count 208 K/mcL (140-400); Red Blood Count 4.02 M/mcL (4.19-5.50); Red Cell Distribution Width 17.1 % (11.5-14.5); Segmented Neutrophils % 92.5 %
[2020-10-13 04:36] LABS: Calcium 8.9 mg/dL (8.6-10.3); Potassium 4.3 mEq/L (3.5-5.1)
[2020-10-13 04:37] LABS: Magnesium 2.7 mg/dL (1.6-2.6); Phosphorous 4.2 mg/dL (2.7-4.5)
[2020-10-13] MEDS: Piperacillin/Tazobactam 3.375 GM in 0.9 % Sodium Chloride Mini Bag 100 ML IVPB SCH ×2 (05:27→19:26)
[2020-10-13] MEDS: Pantoprazole 40 MG VIAL IVP SCH (05:28)
[2020-10-13] MEDS: Heparin 25,000UNIT/250ML 1/2NS 25,000 UNIT/250 ML IV.SOLN IVC SCH (05:29)
[2020-10-13] MEDS: Chlorhexidine Rinse 15 ML MOUTHWASH MM SCH ×2 (08:30→22:25)
[2020-10-13] MEDS: MethylPREDNISolone 40 MG/ML VIAL IVP SCH ×2 (08:30→21:55)
[2020-10-13] MEDS: Dexmedetomidine HCl 400 MCG/100 ML MLS IVC SCH (21:47)
[2020-10-13] MEDS: QUEtiapine Fumarate 25 MG TABLET PO SCH (22:25)
[2020-10-14] MEDS: Artificial Tears SOLN 15 ML BOTTLE BOTH EYES SCH ×7 (00:30→23:57)
[2020-10-14] MEDS: *HR* LORazepam Oral Conc 2 MG/ML SL PRN ×2 (00:35→07:54)
[2020-10-14] MEDS: Piperacillin/Tazobactam 3.375 GM in 0.9 % Sodium Chloride Mini Bag 100 ML IVPB SCH ×4 (00:52→20:40)
[2020-10-14] MEDS: Insulin LISPRO 300 UNITS/3 ML VIAL SUBQ SCH ×7 (01:56→23:57)
[2020-10-14] MEDS: Dexmedetomidine HCl 400 MCG/100 ML MLS IVC SCH ×3 (02:58→14:06)
[2020-10-14 04:27] LABS: Basophils # 0.1 K/mcL (0.0-0.2); Basophils % 0.6 %; Hemoglobin 12.3 g/dL (12.9-16.9); Immature Granulocytes % 5.3 % (0-4); Lymphocytes # 0.4 K/mcL (0.6-4.6); Lymphocytes % 2.9 %; Mean Corpuscular HGB Conc 30.8 g/dL (31.6-35.5); Mean Corpuscular Hemoglobin 28.1 pg (28.0-33.3); Mean Corpuscular Volume 91.3 fL (83.0-100.0); Mean Platelet Volume 11.4 fL (9.4-12.4); Monocytes # 0.7 K/mcL (0.0-1.3); Monocytes % 4.8 %; Neutrophils # 12.1 K/mcL (1.6-8.9); Nucleated Red Blood Cells 0.7 /100 WBC (0); Platelet Count 225 K/mcL (140-400); Red Blood Count 4.38 M/mcL (4.19-5.50); Red Cell Distribution Width 17.2 % (11.5-14.5); Segmented Neutrophils % 86.4 %
[2020-10-14 04:31] LABS: VBG Ionized Calcium 1.17 mmol/L (1.15-1.35)
[2020-10-14 04:49] LABS: Calcium 9.4 mg/dL (8.6-10.3); Magnesium 2.7 mg/dL (1.6-2.6); Phosphorous 2.7 mg/dL (2.7-4.5); Potassium 4.4 mEq/L (3.5-5.1)
[2020-10-14 04:51] LABS: Troponin I 0.04 ng/mL (< 0.04)
[2020-10-14 04:53] LABS: Platelet Estimate Normal (Normal)
[2020-10-14] MEDS: Heparin 25,000UNIT/250ML 1/2NS 25,000 UNIT/250 ML IV.SOLN IVC SCH (06:17)
[2020-10-14] MEDS: PARoxetine 20 MG TABLET PO SCH (08:48)
[2020-10-14] MEDS: Sennosides 8.6 MG TABLET PO SCH (08:48)
[2020-10-14] MEDS: MethylPREDNISolone 40 MG/ML VIAL IVP SCH (09:01)
[2020-10-14] MEDS: Chlorhexidine Rinse 15 ML MOUTHWASH MM SCH ×2 (09:01→20:40)
[2020-10-14] MEDS ORDERED: Haloperidol Lactate 5 MG/ML VIAL IM PRN ×2 (09:02→09:03)
[2020-10-14] MEDS ORDERED: *HR* Midazolam HCl 5 MG/5 ML VIAL IVP ONE (09:23)
[2020-10-14] MEDS ORDERED: *HR* Propofol 200 MG/20 ML VIAL IVP ONE (09:23)
[2020-10-14] MEDS ORDERED: *HR* LORazepam 2 MG/ML VIAL IVP PRN (10:13)
[2020-10-14] MEDS ORDERED: *HR* LORazepam 2 MG/ML VIAL IVP ONE (11:27)
[2020-10-14] MEDS: Ipratropium/Albuterol Neb 3 ML IH PRN (13:10)
[2020-10-14] MEDS ORDERED: Pantoprazole 40 MG VIAL IVP SCH (13:30)
[2020-10-14] MEDS: FentaNYL (PF) 1,000 MCG/100 ML IV.SOLN IVC SCH (14:05)
[2020-10-14 15:46] LABS: ABG Base Excess 1 mEq/L (-2 to 3); ABG HCO3 25 mEq/L (21-27); ABG Oxygen Saturation 100 % (95-98); ABG PCO2 39 mmHg (35-45); ABG PH 7.42 pH Units (7.32-7.45); ABG PO2 358 mmHg (85-104); ABG TCO2 26 mEq/L (20-26); Blood Gas Modality AF; Blood Gas VT 420 cc
[2020-10-14 17:56] LABS: Appearance of Body Fluid Cloudy (Clear); Volume of Body Fluid 16 mL
[2020-10-14 18:46] LABS: Hematocrit 37.8 % (37.5-50.1); Hemoglobin 11.7 g/dL (12.9-16.9)
[2020-10-14] MEDS: QUEtiapine Fumarate 25 MG TABLET PO SCH (20:40)
[2020-10-15] MEDS: FentaNYL (PF) 1,000 MCG/100 ML IV.SOLN IVC SCH ×2 (03:06→15:34)
[2020-10-15 03:34] LABS: Basophils # 0.1 K/mcL (0.0-0.2); Basophils % 0.8 %; Hematocrit 35.9 % (37.5-50.1); Immature Granulocytes % 4.9 % (0-4); Lymphocytes # 0.4 K/mcL (0.6-4.6); Lymphocytes % 3.5 %; Mean Corpuscular HGB Conc 30.6 g/dL (31.6-35.5); Mean Corpuscular Hemoglobin 27.4 pg (28.0-33.3); Mean Corpuscular Volume 89.5 fL (83.0-100.0); Mean Platelet Volume 11.4 fL (9.4-12.4); Monocytes # 0.7 K/mcL (0.0-1.3); Monocytes % 6.3 %; Nucleated Red Blood Cells 0.8 /100 WBC (0); Platelet Count 198 K/mcL (140-400); Red Blood Count 4.01 M/mcL (4.19-5.50); Red Cell Distribution Width 17.2 % (11.5-14.5); Segmented Neutrophils % 84.5 %; White Blood Count 10.6 K/mcL (4.3-11.1)
[2020-10-15] MEDS: Insulin LISPRO 300 UNITS/3 ML VIAL SUBQ SCH ×5 (03:35→19:36)
[2020-10-15] MEDS: Artificial Tears SOLN 15 ML BOTTLE BOTH EYES SCH ×5 (03:35→19:36)
[2020-10-15 03:37] LABS: VBG Ionized Calcium 1.18 mmol/L (1.15-1.35)
[2020-10-15 03:44] LABS: Heparin anti-factor XA UFH 0.05 IU/mL (0.30-0.70); Prothrombin Time 12.1 Seconds (9.4-12.1)
[2020-10-15 03:54] LABS: Albumin 2.9 g/dL (3.5-5.7); Albumin/Globulin Ratio 1.5 (1.1-2.2); Bilirubin,Total 0.5 mg/dL (0.3-1.0); Calcium 8.8 mg/dL (8.6-10.3); Magnesium 2.6 mg/dL (1.6-2.6); Phosphorous 4.5 mg/dL (2.7-4.5); Potassium 4.1 mEq/L (3.5-5.1); Total Protein 4.9 g/dL (6.4-8.9)
[2020-10-15 04:19] LABS: ABG Base Excess 1 mEq/L (-2 to 3); ABG HCO3 26 mEq/L (21-27); ABG Oxygen Saturation 96 % (95-98); ABG PCO2 43 mmHg (35-45); ABG PH 7.39 pH Units (7.32-7.45); ABG PO2 85 mmHg (85-104); ABG TCO2 27 mEq/L (20-26); Blood Gas Modality ASSIST CONTROL; Blood Gas VT 420 cc
[2020-10-15] MEDS: Piperacillin/Tazobactam 3.375 GM in 0.9 % Sodium Chloride Mini Bag 100 ML IVPB SCH ×3 (05:10→22:48)
[2020-10-15] MEDS ORDERED: D5% in Water 1,000 ML IVC SCH (07:15)
[2020-10-15] MEDS: MethylPREDNISolone 40 MG/ML VIAL IVP SCH (08:15)
[2020-10-15] MEDS: Pantoprazole 40 MG VIAL IVP SCH ×2 (08:15→17:16)
[2020-10-15] MEDS: Chlorhexidine Rinse 15 ML MOUTHWASH MM SCH ×2 (08:16→19:36)
[2020-10-15] MEDS: Dexmedetomidine HCl 400 MCG/100 ML MLS IVC SCH (15:12)
[2020-10-15] MEDS: Sennosides 8.6 MG TABLET PO SCH (15:13)
[2020-10-15] MEDS: PARoxetine 20 MG TABLET PO SCH (15:13)
[2020-10-15 17:00] LABS: BUN/Creatinine Ratio 45 (6-26); Blood Urea Nitrogen 58 mg/dL (8-23); Calcium 8.8 mg/dL (8.6-10.3); Carbon Dioxide 22 mEq/L (23-29); Chloride 118 mEq/L (98-107); Glucose 119 mg/dL (70-105); Osmolality,Calculated 323 (280-300); Potassium 4.2 mEq/L (3.5-5.1); Sodium 148 mEq/L (136-145); eGFR For African Americans > 60 (> 60); eGFR For Non-African Americans 54 (> 60)
[2020-10-15] MEDS: QUEtiapine Fumarate 25 MG TABLET PO SCH (19:37)
[2020-10-16] MEDS: Insulin LISPRO 300 UNITS/3 ML VIAL SUBQ SCH ×7 (00:17→23:57)
[2020-10-16] MEDS: Artificial Tears SOLN 15 ML BOTTLE BOTH EYES SCH ×7 (00:17→23:11)
[2020-10-16] MEDS: *HR* Dextrose 50 % in Water (Vial) 50 ML VIAL IVP PRN ×2 (03:50→08:48)
[2020-10-16] MEDS: FentaNYL (PF) 1,000 MCG/100 ML IV.SOLN IVC SCH ×2 (04:00→16:09)
[2020-10-16 04:27] LABS: VBG Ionized Calcium 1.16 mmol/L (1.15-1.35)
[2020-10-16 04:36] LABS: Basophils # 0.1 K/mcL (0.0-0.2); Basophils % 0.8 %; Eosinophils % 0.1 %; Hematocrit 38.1 % (37.5-50.1); Hemoglobin 11.4 g/dL (12.9-16.9); Lymphocytes # 0.6 K/mcL (0.6-4.6); Lymphocytes % 5.4 %; Mean Corpuscular HGB Conc 29.9 g/dL (31.6-35.5); Mean Corpuscular Hemoglobin 27.8 pg (28.0-33.3); Mean Corpuscular Volume 92.9 fL (83.0-100.0); Mean Platelet Volume 11.6 fL (9.4-12.4); Monocytes # 0.5 K/mcL (0.0-1.3); Monocytes % 4.4 %; Neutrophils # 8.9 K/mcL (1.6-8.9); Nucleated Red Blood Cells 0.5 /100 WBC (0); Platelet Count 193 K/mcL (140-400); Red Cell Distribution Width 17.3 % (11.5-14.5); Segmented Neutrophils % 83.3 %; White Blood Count 10.7 K/mcL (4.3-11.1)
[2020-10-16 04:44] LABS: ABG Base Excess 1 mEq/L (-2 to 3); ABG HCO3 26 mEq/L (21-27); ABG Oxygen Saturation 97 % (95-98); ABG PCO2 42 mmHg (35-45); ABG PH 7.39 pH Units (7.32-7.45); ABG PO2 89 mmHg (85-104); ABG TCO2 27 mEq/L (20-26); Blood Gas VT 420 cc
[2020-10-16 04:52] LABS: Magnesium 2.7 mg/dL (1.6-2.6); Phosphorous 3.7 mg/dL (2.7-4.5)
[2020-10-16] MEDS: Pantoprazole 40 MG VIAL IVP SCH ×2 (05:36→16:51)
[2020-10-16] MEDS: Piperacillin/Tazobactam 3.375 GM in 0.9 % Sodium Chloride Mini Bag 100 ML IVPB SCH ×3 (05:36→21:39)
[2020-10-16 05:44] LABS: Calcium 8.7 mg/dL (8.6-10.3); Potassium 3.7 mEq/L (3.5-5.1)
[2020-10-16 05:59] LABS: Platelet Estimate Normal (Normal)
[2020-10-16] MEDS: MethylPREDNISolone 40 MG/ML VIAL IVP SCH (07:27)
[2020-10-16] MEDS: PARoxetine 20 MG TABLET PO SCH (07:27)
[2020-10-16] MEDS: Chlorhexidine Rinse 15 ML MOUTHWASH MM SCH ×2 (07:27→21:39)
[2020-10-16] MEDS: Sennosides 8.6 MG TABLET PO SCH (07:27)
[2020-10-16] MEDS ORDERED: D10% in Water 500 ML IVC SCH (10:45)
[2020-10-16] MEDS: Ipratropium/Albuterol Neb 3 ML IH PRN ×2 (11:03→15:30)
[2020-10-16] MEDS: Dexmedetomidine HCl 400 MCG/100 ML MLS IVC SCH ×2 (14:37→20:00)
[2020-10-16] MEDS: QUEtiapine Fumarate 25 MG TABLET PO SCH (21:39)
[2020-10-17] MEDS: FentaNYL (PF) 1,000 MCG/100 ML IV.SOLN IVC SCH ×2 (00:55→13:58)
[2020-10-17] MEDS: Artificial Tears SOLN 15 ML BOTTLE BOTH EYES SCH ×7 (04:00→23:36)
[2020-10-17 04:16] LABS: ABG Base Excess 0 mEq/L (-2 to 3); ABG HCO3 27 mEq/L (21-27); ABG Oxygen Saturation 99 % (95-98); ABG PCO2 57 mmHg (35-45); ABG PH 7.29 pH Units (7.32-7.45); ABG PO2 150 mmHg (85-104); ABG TCO2 29 mEq/L (20-26); Blood Gas VT 420 cc
[2020-10-17] MEDS: Pantoprazole 40 MG VIAL IVP SCH ×2 (05:20→17:26)
[2020-10-17] MEDS: Insulin LISPRO 300 UNITS/3 ML VIAL SUBQ SCH ×6 (05:20→23:42)
[2020-10-17 06:15] LABS: Basophils # 0.1 K/mcL (0.0-0.2); Basophils % 0.7 %; Eosinophils % 0.1 %; Hematocrit 36.1 % (37.5-50.1); Hemoglobin 10.7 g/dL (12.9-16.9); Immature Granulocytes % 6.1 % (0-4); Lymphocytes # 0.5 K/mcL (0.6-4.6); Lymphocytes % 4.1 %; Mean Corpuscular HGB Conc 29.6 g/dL (31.6-35.5); Mean Corpuscular Hemoglobin 27.6 pg (28.0-33.3); Mean Corpuscular Volume 93.3 fL (83.0-100.0); Mean Platelet Volume 11.3 fL (9.4-12.4); Monocytes # 0.8 K/mcL (0.0-1.3); Monocytes % 6.1 %; Neutrophils # 10.5 K/mcL (1.6-8.9); Nucleated Red Blood Cells 0.5 /100 WBC (0); Platelet Count 197 K/mcL (140-400); Red Blood Count 3.87 M/mcL (4.19-5.50); Red Cell Distribution Width 17.4 % (11.5-14.5); Segmented Neutrophils % 82.9 %; White Blood Count 12.7 K/mcL (4.3-11.1)
[2020-10-17 06:18] LABS: VBG Ionized Calcium 1.19 mmol/L (1.15-1.35)
[2020-10-17 06:34] LABS: Magnesium 2.7 mg/dL (1.6-2.6); Phosphorous 4.4 mg/dL (2.7-4.5)
[2020-10-17 06:36] LABS: Calcium 8.6 mg/dL (8.6-10.3); Potassium 4.2 mEq/L (3.5-5.1)
[2020-10-17 06:42] LABS: Platelet Estimate Normal (Normal)
[2020-10-17] MEDS: Chlorhexidine Rinse 15 ML MOUTHWASH MM SCH ×2 (08:05→19:13)
[2020-10-17] MEDS: MethylPREDNISolone 40 MG/ML VIAL IVP SCH (08:06)
[2020-10-17] MEDS: Sennosides 8.6 MG TABLET PO SCH (08:06)
[2020-10-17] MEDS: PARoxetine 20 MG TABLET PO SCH (08:06)
[2020-10-17] MEDS: Piperacillin/Tazobactam 3.375 GM in 0.9 % Sodium Chloride Mini Bag 100 ML IVPB SCH ×3 (13:58→23:42)
[2020-10-17] MEDS: Dexmedetomidine HCl 400 MCG/100 ML MLS IVC SCH (18:37)
[2020-10-17] MEDS: QUEtiapine Fumarate 25 MG TABLET PO SCH (19:13)
[2020-10-17] MEDS: *HR* FentaNYL (PF) 100 MCG/2 ML VIAL IVP PRN (19:58)
[2020-10-17] MEDS: *HR* LORazepam 2 MG/ML VIAL IVP PRN (21:42)
[2020-10-18] MEDS: *HR* LORazepam 2 MG/ML VIAL IVP PRN ×3 (01:43→22:14)
[2020-10-18] MEDS: *HR* FentaNYL (PF) 100 MCG/2 ML VIAL IVP PRN ×2 (02:12→10:14)
[2020-10-18 03:53] LABS: VBG Ionized Calcium 1.12 mmol/L (1.15-1.35)
[2020-10-18 04:07] LABS: Magnesium 2.6 mg/dL (1.6-2.6); Phosphorous 2.5 mg/dL (2.7-4.5)
[2020-10-18 04:08] LABS: BUN/Creatinine Ratio 33 (6-26); Blood Urea Nitrogen 41 mg/dL (8-23); Calcium 9.3 mg/dL (8.6-10.3); Carbon Dioxide 23 mEq/L (23-29); Chloride 118 mEq/L (98-107); Glucose 92 mg/dL (70-105); Osmolality,Calculated 320 (280-300); Potassium 3.7 mEq/L (3.5-5.1); Sodium 150 mEq/L (136-145); eGFR For African Americans > 60 (> 60); eGFR For Non-African Americans 57 (> 60)
[2020-10-18] MEDS: Insulin LISPRO 300 UNITS/3 ML VIAL SUBQ SCH ×3 (04:22→13:18)
[2020-10-18] MEDS: Dexmedetomidine HCl 400 MCG/100 ML MLS IVC SCH (04:26)
[2020-10-18] MEDS: Pantoprazole 40 MG VIAL IVP SCH ×2 (05:00→16:10)
[2020-10-18] MEDS: Artificial Tears SOLN 15 ML BOTTLE BOTH EYES SCH ×2 (05:01→09:17)
[2020-10-18] MEDS ORDERED: *HR* Metoprolol 5 MG/5 ML VIAL IVP ONE (08:13)
[2020-10-18] MEDS: *HR* Metoprolol 5 MG/5 ML VIAL IVP PRN ×2 (08:15→14:52)
[2020-10-18] MEDS: Piperacillin/Tazobactam 3.375 GM in 0.9 % Sodium Chloride Mini Bag 100 ML IVPB SCH ×2 (08:53→16:06)
[2020-10-18] MEDS: Chlorhexidine Rinse 15 ML MOUTHWASH MM SCH (09:08)
[2020-10-18] MEDS: Sennosides 8.6 MG TABLET PO SCH (09:16)
[2020-10-18] MEDS: PARoxetine 20 MG TABLET PO SCH (09:16)
[2020-10-18] MEDS: Ipratropium/Albuterol Neb 3 ML IH SCH ×3 (16:12→22:39)
[2020-10-18] MEDS ORDERED: D5% in Water 1,000 ML IVC PRN (16:21)
[2020-10-18] MEDS ORDERED: Dextrose Gel 15 GM/37.5 ML TUBE PO PRN ×2 (16:21)
[2020-10-18] MEDS ORDERED: *HR* Dextrose 50 % in Water (Vial) 50 ML VIAL ONE (16:21)
[2020-10-18] MEDS ORDERED: *HR* Dextrose 50 % in Water (Vial) 50 ML VIAL IVP PRN (16:21)
[2020-10-19] MEDS: QUEtiapine Fumarate 25 MG TABLET PO SCH (00:09)
[2020-10-19] MEDS: Ipratropium/Albuterol Neb 3 ML IH SCH ×3 (03:22→11:25)
[2020-10-19] MEDS: Piperacillin/Tazobactam 3.375 GM in 0.9 % Sodium Chloride Mini Bag 100 ML IVPB SCH ×2 (04:33→09:05)
[2020-10-19] MEDS: Pantoprazole 40 MG VIAL IVP SCH (05:37)
[2020-10-19 05:51] LABS: BUN/Creatinine Ratio 28 (6-26); Blood Urea Nitrogen 29 mg/dL (8-23); Calcium 9.2 mg/dL (8.6-10.3); Carbon Dioxide 25 mEq/L (23-29); Chloride 117 mEq/L (98-107); Glucose 91 mg/dL (70-105); Osmolality,Calculated 327 (280-300); Potassium 3.1 mEq/L (3.5-5.1); Sodium 156 mEq/L (136-145); eGFR For African Americans > 60 (> 60); eGFR For Non-African Americans > 60 (> 60)
[2020-10-19 05:52] LABS: Magnesium 2.3 mg/dL (1.6-2.6); Phosphorous 2.9 mg/dL (2.7-4.5)
[2020-10-19 06:08] LABS: Basophils # 0.1 K/mcL (0.0-0.2); Basophils % 0.6 %; Hematocrit 44.1 % (37.5-50.1); Hemoglobin 13.8 g/dL (12.9-16.9); Immature Granulocytes % 4.1 % (0-4); Lymphocytes # 0.5 K/mcL (0.6-4.6); Lymphocytes % 3.5 %; Mean Corpuscular HGB Conc 31.3 g/dL (31.6-35.5); Mean Corpuscular Hemoglobin 27.9 pg (28.0-33.3); Mean Corpuscular Volume 89.3 fL (83.0-100.0); Mean Platelet Volume 11.9 fL (9.4-12.4); Monocytes % 7.5 %; Neutrophils # 11.3 K/mcL (1.6-8.9); Nucleated Red Blood Cells 0.2 /100 WBC (0); Platelet Count 213 K/mcL (140-400); Red Blood Count 4.94 M/mcL (4.19-5.50); Red Cell Distribution Width 17.1 % (11.5-14.5); Segmented Neutrophils % 84.3 %; White Blood Count 13.4 K/mcL (4.3-11.1)
[2020-10-19] MEDS ORDERED: D5% in Water 1,000 ML IVC SCH (07:15)
[2020-10-19] MEDS: Sennosides 8.6 MG TABLET PO SCH (07:20)
[2020-10-19] MEDS: PARoxetine 20 MG TABLET PO SCH (07:20)
[2020-10-19] MEDS: *HR* LORazepam 2 MG/ML VIAL IVP PRN (09:05)
[2020-10-19] MEDS ORDERED: Haloperidol Lactate 5 MG/ML VIAL IVP ONE (09:24)
[2020-10-19] MEDS ORDERED: Acetaminophen IV 1,000 MG/100 ML BAG IVPB ONE (13:10)
[2020-10-19] MEDS ORDERED: Chloraseptic Spray 177 ML BOTTLE MM PRN (13:50)
[2020-10-19] MEDS ORDERED: Acetaminophen 650 MG RECTAL SUPP RC PRN (15:04)
[2020-10-19] MEDS ORDERED: Atropine 1% Opth Drops 100 DROP/5 ML BOTTLE SL PRN (15:04)
[2020-10-19] MEDS: Haloperidol Oral Conc 10 MG/5 ML UDC PO SCH ×2 (15:33→17:36)
[2020-10-19] MEDS: *HR* FentaNYL (PF) 100 MCG/2 ML VIAL IVP PRN ×6 (15:34→22:31)
[2020-10-20] MEDS: *HR* FentaNYL (PF) 100 MCG/2 ML VIAL IVP PRN ×8 (00:04→16:33)
[2020-10-20] MEDS: Haloperidol Oral Conc 10 MG/5 ML UDC PO SCH ×5 (00:04→23:28)
[2020-10-20] MEDS: *HR* LORazepam 2 MG/ML VIAL IVP PRN ×2 (04:02→08:15)
[2020-10-20] MEDS: Haloperidol Lactate 5 MG/ML VIAL IVP PRN ×2 (10:14→15:03)
[2020-10-21] MEDS: *HR* LORazepam 2 MG/ML VIAL IVP PRN ×4 (02:47→13:18)
[2020-10-21] MEDS: *HR* FentaNYL (PF) 100 MCG/2 ML VIAL IVP PRN ×4 (04:10→13:17)
[2020-10-21] MEDS: Haloperidol Oral Conc 10 MG/5 ML UDC PO SCH ×2 (05:31→12:03)
[2020-10-21 07:19] VITALS: BP 137/89
== END 2020-10-21 14:18 | disposition hospice, inpatient (51) | DRG 871 ==
LOC: EMEROOARM 02:43 → 2NNU 02:43 → SUATTDRO 10-11 00:34 → ICNU 10-11 05:42 → 2ANU 10-18 18:05
PROVIDERS: ADMIT Internal Medicine; ATTEND Internal Medicine

== ENCOUNTER 2020-10-21 10:21 | Inpatient (IN) ==
[2020-10-21] MEDS ORDERED: Bisacodyl 10 MG RECTAL SUPPOSITORY RC PRN (10:27)
[2020-10-21] MEDS ORDERED: Haloperidol Lactate 5 MG/ML VIAL IVP PRN (10:32)
[2020-10-21] MEDS: *HR* FentaNYL (PF) 100 MCG/2 ML VIAL IVP PRN ×4 (15:45→22:20)
[2020-10-21] MEDS: *HR* LORazepam 2 MG/ML VIAL IVP PRN ×2 (15:46→22:22)
[2020-10-21] MEDS: Haloperidol Lactate 5 MG/ML VIAL IVP PRN (17:54)
[2020-10-21] MEDS: Atropine 1% Opth Drops 100 DROP/5 ML BOTTLE SL PRN ×2 (20:27→22:20)
[2020-10-22] MEDS: *HR* FentaNYL (PF) 100 MCG/2 ML VIAL IVP PRN ×5 (00:21→07:54)
[2020-10-22] MEDS: Haloperidol Lactate 5 MG/ML VIAL IVP PRN (02:05)
[2020-10-22] MEDS: *HR* LORazepam 2 MG/ML VIAL IVP PRN ×4 (03:32→21:11)
[2020-10-22] MEDS: Atropine 1% Opth Drops 100 DROP/5 ML BOTTLE SL PRN ×2 (03:33→05:18)
[2020-10-22] MEDS ORDERED: Scopolamine Patch 1.5 MG PATCH.TD72 TD SCH (09:45)
[2020-10-22] MEDS: *HR* LORazepam 2 MG/ML VIAL IVP SCH ×4 (10:17→19:39)
[2020-10-22] MEDS: FentaNYL (PF) 1,000 MCG/100 ML IV.SOLN IVC SCH ×2 (10:18→22:16)
[2020-10-23] MEDS: *HR* LORazepam 2 MG/ML VIAL IVP SCH ×3 (00:05→07:51)
[2020-10-23] MEDS: *HR* LORazepam 2 MG/ML VIAL IVP PRN ×2 (02:22→05:22)
[2020-10-23] MEDS: Haloperidol Lactate 5 MG/ML VIAL IVP PRN (05:22)
[2020-10-23 06:57] VITALS: BP 113/73
[2020-10-23] MEDS: FentaNYL (PF) 1,000 MCG/100 ML IV.SOLN IVC SCH (07:51)
== END 2020-10-23 11:05 | disposition expired | DRG 951 ==
LOC: 2ANU 14:20
PROVIDERS: ADMIT Internal Medicine Hospice and Palliative Medicine; ATTEND Internal Medicine Hospice and Palliative Medicine